=== PATIENT | female | born 1980 | race Caucasian/White ===

== ENCOUNTER 2018-03-17 07:45 | Emergency (ER) | payer OTHER ==
[~2018-03-17] VITALS: Ht 160 cm; Wt 74.4 kg
--- NOTE | 2018-03-17 08:00 | NUR ---
PT IS IN ROOM #2A. PT IS COMPLAINING OF LOWER ABDOMEN PAIN WITH URINATION 02/21. DR HANSON NOTIFIED.
[2018-03-17 08:16] LABS: *URINE HCG, QUAL NEGATIVE (NEGATIVE)
[2018-03-17 08:19] LABS: *BILIRUBIN,URIN 2+ (NEGATIVE); *BLOOD, URINE 3+ (NEGATIVE); *CLARITY,URINE CLOUDY (CLEAR); *COLOR,URINE RED (YELLOW); *KETONES,URINE TRACE (NEGATIVE); *PROTEIN,URINE 3+ (NEGATIVE); LEUKOCYTE ESTERASE ,URINE 3+ (NEGATIVE); NITRITE, URINE POSITIVE (NEGATIVE); UGLUCOSE NEGATIVE (NEGATIVE)
[2018-03-17 08:24] LABS: RBC,URINE TNTC /HPF (0-3); SQUAMOUS EPITHELIAL CELL,UR FEW /HPF (NONE SEEN)
[2018-03-17 08:25] LABS: BACTERIA,URINE MODERATE /HPF (NONE SEEN); WBC,URINE 50-80 /HPF (0-3)
[2018-03-17] MEDS ORDERED: LEVOFLOXACIN 750 MG TABLET PO ONE (08:30)
[2018-03-17] MEDS ORDERED: PHENAZOPYRIDINE HCL 100 MG TABLET PO ONE (08:30)
--- NOTE | 2018-03-17 08:33 | NUR ---
DR HANSON EVALUATED THE PT.
[2018-03-17] MEDS ORDERED: PHENAZOPYRIDINE HCL 100 MG TABLET ONE (08:39)
[2018-03-17] MEDS ORDERED: LEVOFLOXACIN 750 MG TABLET ONE (08:39)
--- NOTE | 2018-03-17 09:00 | NUR ---
PT WAS D/C TO HOME. D/C INSTRUCTIONS GIVEN TO THE PT.
[2018-03-17 09:06] VITALS: BP 128/71
[2018-03-19 08:07] LABS: *GC NAA Negative (Negative)
[2018-03-19 09:07] LABS: *TRIC.VAG. NAA Negative (Negative)
== END 2018-03-17 09:07 | disposition home or self-care (01) ==
LOC: ER 07:47
DX: N30.80 Other cystitis without hematuria (principal); Z88.2 Allergy status to sulfonamides; Z91.040 Latex allergy status
CPT/HCPCS: 81001; 84703; 87077; 87086; 87186; 87491; 99284; A4663